=== PATIENT | male | born 1945 | race Caucasian/White ===

== ENCOUNTER 2023-06-02 23:02 | Emergency (ER) | payer MEDICARE, BC ==
[~2023-06-02] VITALS: Ht 175.3 cm; Wt 70.8 kg
[2023-06-03 00:01] LABS: BASOPHILS % (AUTO) 0.5 % (0.0-2.0); EOSINOPHILS # (AUTO) 0.1 K/uL (0.0-0.7); EOSINOPHILS % (AUTO) 1.5 % (0.0-6.0); HEMATOCRIT 31 % (39-51); HEMOGLOBIN 10.5 g/dL (13.5-17.5); LYMPHOCYTES # (AUTO) 2.3 K/uL (0.8-4.8); LYMPHOCYTES % (AUTO) 26.4 % (20.0-44.0); MEAN CORPUSCULAR HEMOGLOBIN 32 PG (26.0-33.0); MEAN CORPUSCULAR HGB CONC 34 g/dl (31.0-36.0); MEAN CORPUSCULAR VOLUME 94 fL (80-96); MONOCYTES # (AUTO) 0.7 K/uL (0.1-1.30); MONOCYTES % (AUTO) 8.4 % (2.0-12.0); NEUTROPHILS # (AUTO) 5.5 K/uL (1.8-8.9); NEUTROPHILS % (AUTO) 63.2 % (43.0-81.0); PLATELET COUNT (AUTO) 151 K/uL (150-450); RED BLOOD CELL COUNT(AUTO) 3.25 MIL/uL (4.5-6.0); RED CELL DISTRIBUTION WIDTH 14.5 % (11.5-15.0); WHITE BLOOD COUNT (AUTO) 8.6 K/uL (4.3-11.0)
[2023-06-03 00:10] LABS: POTASSIUM 2.7 mmol/L (3.5-5.1)
[2023-06-03] MEDS ORDERED: POTASSIUM CHLORIDE 20 MEQ POWDER PACKET ONE (00:28)
[2023-06-03] MEDS: POTASSIUM CHLORIDE 20 MEQ POWDER PACKET PO ONE (00:39)
[2023-06-03 00:51] VITALS: BP 125/68; TEMP 208.4; O2SAT 99
== END 2023-06-03 00:52 | disposition home or self-care (01) ==
LOC: ER 23:04
DX: E87.6 Hypokalemia (principal); Z91.010 Allergy to peanuts
CPT/HCPCS: 36415; 80048-TC; 85025-TC

== ENCOUNTER 2023-08-31 19:38 | Emergency (ER) | payer MEDICARE, BC ==
[~2023-08-31] VITALS: Ht 175.3 cm; Wt 70.3 kg
[2023-08-31 22:00] VITALS: BP 132/80; TEMP 98.1; O2SAT 99
== END 2023-08-31 22:02 | disposition home or self-care (01) ==
LOC: ER 19:40
DX: S00.03XA Contusion of scalp, initial encounter (principal); R56.9 Unspecified convulsions; Z91.010 Allergy to peanuts; W18.39XA Other fall on same level, initial encounter; Y93.89 Activity, other specified; Y92.89 Other specified places as the place of occurrence of the external cause; Y99.8 Other external cause status
CPT/HCPCS: 70450-TC; 72125-TC

== ENCOUNTER 2024-04-18 13:23 | Inpatient (IN) | payer MEDICARE, BC ==
[~2024-04-18] VITALS: Ht 175.3 cm; Wt 74.8 kg
[2024-04-18] VITALS (8 sets, daily range): BP systolic 90–136; BP diastolic 46–82; TEMP 97.8; O2SAT 95–98
[2024-04-18 13:46] LABS: BASOPHILS % (AUTO) 0.1 % (0.0-2.0); HEMATOCRIT 34 % (39-51); HEMOGLOBIN 11.7 g/dL (13.5-17.5); LYMPHOCYTES # (AUTO) 3.1 K/uL (0.8-4.8); LYMPHOCYTES % (AUTO) 26.8 % (20.0-44.0); MEAN CORPUSCULAR HEMOGLOBIN 32 PG (26.0-33.0); MEAN CORPUSCULAR HGB CONC 34 g/dl (31.0-36.0); MEAN CORPUSCULAR VOLUME 94 fL (80-96); MONOCYTES # (AUTO) 0.4 K/uL (0.1-1.30); MONOCYTES % (AUTO) 3.4 % (2.0-12.0); NEUTROPHILS # (AUTO) 8.1 K/uL (1.8-8.9); NEUTROPHILS % (AUTO) 69.7 % (43.0-81.0); PLATELET COUNT (AUTO) 210 K/uL (150-450); RED BLOOD CELL COUNT(AUTO) 3.67 MIL/uL (4.5-6.0); RED CELL DISTRIBUTION WIDTH 14.6 % (11.5-15.0); WHITE BLOOD COUNT (AUTO) 11.6 K/uL (4.3-11.0)
[2024-04-18 13:47] LABS: CALCIUM, SERUM 8.6 mg/dL (8.5-10.1); CARBON DIOXIDE 29 mmol/L (21-32); CHLORIDE 111 mmol/L (98-107); CREATININE 1.1 mg/dL (0.6-1.3); GLUCOSE 145 mg/dL (74-106); SODIUM SERUM 148 mmol/L (136-145); UREA NITROGEN, BLOOD 29 mg/dL (7-18)
[2024-04-18 13:52] LABS: POTASSIUM 2.6 mmol/L (3.5-5.1)
[2024-04-18 13:53] LABS: ALANINE AMINOTRANSFERASE 17 U/L (12-78); ALBUMIN 2.4 g/dL (3.4-5.0); ALKALINE PHOSPHATASE 102 U/L (46-116); ASPARTATE AMINOTRANSFERASE 14 U/L (15-37); BILIRUBIN,DIRECT 0.3 mg/dL (0.0-0.2)
[2024-04-18] MEDS: IV NS 0.9% 1,000 ML BAG IV ONE (13:53)
[2024-04-18 13:54] LABS: INR 1.15 (0.91-1.10); PARTIAL THROMBOPLASTIN TIME 24.8 SEC (24.3-34.3); PROTHROMBIN TIME 12.1 SECS (9.2-11.1)
[2024-04-18] MEDS: CEFEPIME 1 GM in IV D5W 50 ML IV ONE (13:54)
[2024-04-18 14:01] LABS: PLATELET ESTIMATE ADEQUATE
[2024-04-18 14:03] LABS: BAND % (MANUAL) 7 % (0.0-5.0); LYMPHOCYTES % (MANUAL) 31 % (16-48); MONOCYTES % (MANUAL) 8 % (0-11.0); NEUTROPHILS % (MANUAL) 54 (42-76)
[2024-04-18 14:05] LABS: LACTIC ACID 2.7 mmol/L (0.4-2.0)
[2024-04-18] MEDS: VANCOMYCIN 1 GM in IV D5W 250 ML IV ONE (14:07)
[2024-04-18 14:19] LABS: ABG BASE EXCESS 1.1 mmol/L (-2.0-3.0); ABG OXYGEN SATURATION 88.1 % (94.0-98.0); ABG PCO2 34.4 mmHg (35.0-48.0); ABG PO2 51.4 mmHg (83.0-108.0); ABG TOTAL HEMOGLOBIN 11.1 G/dL (13.5-17.5); COHb 0.3 % (0.5-1.5); MetHb 0.2 % (0.0-1.5); O2Hb 87.7 % (94.0-97.0); SITE, ABG RIGHT RADIAL
[2024-04-18] MEDS ORDERED: POTASSIUM CL. PREMIX PERIPHER. 50 ML ONE ×3 (14:32→17:34)
[2024-04-18] MEDS ORDERED: ACETAMINOPHEN 650 MG/SUPP.RECT RC ONE (14:32)
[2024-04-18] MEDS: POTASSIUM CL. PREMIX PERIPHER. 50 ML IV SCH (14:48)
[2024-04-18] MEDS: ACETAMINOPHEN 650 MG/SUPP.RECT RC ONE (14:49)
[2024-04-18 14:54] LABS: APPEARANCE,URINE CLEAR (CLEAR); BILIRUBIN,URINE 1+ (NEGATIVE); BLOOD, URINE TRACE-INTA Ery/uL (NEGATIVE); COLOR,URINE YELLOW (YELLOW); KETONES,URINE 1+ mg/dL (NEGATIVE); LEUKOCYTE ESTERASE ,URINE NEGATIVE (NEGATIVE); NITRITE, URINE NEGATIVE (NEGATIVE); PROTEIN,URINE 2+ mg/dl (NEGATIVE); UGLUCOSE TRACE mg/dL (NEGATIVE)
[2024-04-18 14:57] LABS: ADD URINE CULTURE NO; BACTERIA,URINE Few /HPF (None Seen); CALCIUM OXALATE CRYSTALS,UR Few /HPF (None Seen); HYALINE CASTS, URINE Few /LPF (None Seen); SQUAMOUS EPITHELIAL CELL,UR Few /HPF (None Seen); URINE AMORPHOUS URATE Moderate /HPF (None Seen)
[2024-04-18 14:58] LABS: MUCUS,URINE Few /LPF (None Seen)
[2024-04-18] MEDS ORDERED: CHOL200026 PO (15:00)
[2024-04-18] MEDS ORDERED: MULT-594 PO (15:00)
[2024-04-18] MEDS ORDERED: POTA-10 PO (15:00)
[2024-04-18] MEDS ORDERED: LACO100T2 PO (15:00)
[2024-04-18] MEDS ORDERED: DONE5TAB34 PO (15:00)
[2024-04-18] MEDS ORDERED: GEMTESA PO (15:00)
[2024-04-18] MEDS ORDERED: ASPI-1169 PO (15:00)
[2024-04-18] MEDS ORDERED: FLUD0.1T PO (15:00)
[2024-04-18] MEDS ORDERED: ASCO500T10 PO (15:00)
[2024-04-18] MEDS ORDERED: ATOR10TA PO (15:00)
[2024-04-18] MEDS ORDERED: MIDO10TA PO (15:00)
[2024-04-18] MEDS ORDERED: POTASSIUM CL. PREMIX PERIPHER. 100 ML ONE (16:36)
[2024-04-18] MEDS ORDERED: ZOLPIDEM TARTRATE 5 MG TABLET PO PRN (17:00)
[2024-04-18] MEDS ORDERED: MAGNESIUM HYDROXIDE 30 ML UDC PO PRN (17:00)
[2024-04-18] MEDS ORDERED: MAG HYDROX/AL HYDROX/SIMETH 30 ML UDC PO PRN (17:00)
[2024-04-18] MEDS ORDERED: ONDANSETRON HCL/PF 4 MG/2 ML VIAL IVP PRN (17:00)
[2024-04-18] MEDS ORDERED: Z GUARD REMEDY 4 OZ OINT TP PRN (17:00)
[2024-04-18] MEDS: ENOXAPARIN SODIUM 40 MG/0.4 ML DISP.SYRIN SQ SCH (21:01)
[2024-04-18] MEDS: IV D5/0.45 NACL 1,000 ML IV PRN (21:02)
[2024-04-18] MEDS: IV NS 0.9% 250 ML IV PRN (23:45)
[2024-04-19] VITALS (53 sets, daily range): BP systolic 103–139; BP diastolic 58–89; TEMP 97.8–98.7; O2SAT 84–100
[2024-04-19] MEDS: CEFEPIME 2 GM in IV D5W 100 ML IV SCH (00:25)
[2024-04-19] MEDS: VANCOMYCIN 750 MG in IV D5W 250 ML IV SCH (00:55)
[2024-04-19 04:51] LABS: BASOPHILS % (AUTO) 0.1 % (0.0-2.0); HEMATOCRIT 32 % (39-51); HEMOGLOBIN 10.8 g/dL (13.5-17.5); LYMPHOCYTES # (AUTO) 1.3 K/uL (0.8-4.8); LYMPHOCYTES % (AUTO) 20.4 % (20.0-44.0); MEAN CORPUSCULAR HEMOGLOBIN 32 PG (26.0-33.0); MEAN CORPUSCULAR HGB CONC 34 g/dl (31.0-36.0); MEAN CORPUSCULAR VOLUME 94 fL (80-96); MONOCYTES # (AUTO) 0.2 K/uL (0.1-1.30); MONOCYTES % (AUTO) 3.5 % (2.0-12.0); PLATELET COUNT (AUTO) 127 K/uL (150-450); RED BLOOD CELL COUNT(AUTO) 3.38 MIL/uL (4.5-6.0); RED CELL DISTRIBUTION WIDTH 14.6 % (11.5-15.0); WHITE BLOOD COUNT (AUTO) 6.6 K/uL (4.3-11.0)
[2024-04-19 04:58] LABS: CALCIUM, SERUM 7.4 mg/dL (8.5-10.1); CREATININE 0.9 mg/dL (0.6-1.3); MAGNESIUM 1.8 mg/dL (1.8-2.4); PHOSPHORUS 2.2 mg/dL (2.5-4.9)
[2024-04-19 05:06] LABS: THYROID STIMULATING HORMONE 0.87 uIU/mL (0.358-3.74)
[2024-04-19 05:24] LABS: POTASSIUM 2.8 mmol/L (3.5-5.1)
[2024-04-19] MEDS: POTASSIUM CL. PREMIX PERIPHER. 50 ML IV SCH ×2 (06:00→15:48)
[2024-04-19] MEDS: PANTOPRAZOLE 40 MG VIAL IV SCH (08:31)
[2024-04-19 15:21] LABS: CALCIUM, SERUM 7.2 mg/dL (8.5-10.1); CREATININE 0.9 mg/dL (0.6-1.3); POTASSIUM 3.2 mmol/L (3.5-5.1)
[2024-04-19] MEDS: Sodium Phosphate 15 MMOL in IV NS 0.9% 245 ML IV SCH (16:46)
[2024-04-19 21:03] LABS: CREATININE, URINE 143.8 MG/DL (30.0-125.0); URINE TOTAL PROTEIN 102.1 mg/dL (0-11.9)
[2024-04-20] VITALS (22 sets, daily range): BP systolic 110–149; BP diastolic 50–93; TEMP 97.8–98.7; O2SAT 95–100
[2024-04-20 04:34] LABS: BASOPHILS % (AUTO) 0.2 % (0.0-2.0); EOSINOPHILS % (AUTO) 0.8 % (0.0-6.0); HEMATOCRIT 30 % (39-51); HEMOGLOBIN 10.5 g/dL (13.5-17.5); LYMPHOCYTES # (AUTO) 1.1 K/uL (0.8-4.8); LYMPHOCYTES % (AUTO) 17.6 % (20.0-44.0); MEAN CORPUSCULAR HEMOGLOBIN 32 PG (26.0-33.0); MEAN CORPUSCULAR HGB CONC 35 g/dl (31.0-36.0); MEAN CORPUSCULAR VOLUME 93 fL (80-96); MONOCYTES # (AUTO) 0.3 K/uL (0.1-1.30); MONOCYTES % (AUTO) 4.4 % (2.0-12.0); NEUTROPHILS # (AUTO) 4.6 K/uL (1.8-8.9); PLATELET COUNT (AUTO) 138 K/uL (150-450); RED BLOOD CELL COUNT(AUTO) 3.26 MIL/uL (4.5-6.0); RED CELL DISTRIBUTION WIDTH 14.7 % (11.5-15.0)
[2024-04-20 04:56] LABS: ALBUMIN 1.8 g/dL (3.4-5.0); BILIRUBIN,TOTAL 0.6 mg/dL (0.2-1.0); CALCIUM, SERUM 7.9 mg/dL (8.5-10.1); CREATININE 0.9 mg/dL (0.6-1.3); MAGNESIUM 1.6 mg/dL (1.8-2.4); PHOSPHORUS 2.2 mg/dL (2.5-4.9); POTASSIUM 2.9 mmol/L (3.5-5.1); TOTAL PROTEIN, SERUM 5.1 g/dL (6.4-8.2)
[2024-04-20] MEDS: POTASSIUM CL. PREMIX PERIPHER. 50 ML IV SCH (09:18)
[2024-04-20] MEDS: Magnesium 1GM/D5W 100ML PREMIX 100 ML IV SCH (12:06)
[2024-04-20] MEDS: NEUTRA PHOS 1 POWD.PACKET PO ONE (16:13)
[2024-04-20] MEDS: LACOSAMIDE 50 MG TABLET PO SCH (16:14)
[2024-04-20] MEDS: ATORVASTATIN 10 MG TABLET PO SCH (21:40)
[2024-04-21] VITALS: BP 132/80; TEMP 98.2; O2SAT 98
[2024-04-21 04:00] VITALS: BP 125/85; TEMP 97.6; O2SAT 95
[2024-04-21 08:00] VITALS: BP 147/76; TEMP 98.1; O2SAT 93
[2024-04-21 08:22] LABS: BASOPHILS % (AUTO) 0.2 % (0.0-2.0); EOSINOPHILS # (AUTO) 0.1 K/uL (0.0-0.7); EOSINOPHILS % (AUTO) 0.7 % (0.0-6.0); HEMATOCRIT 33 % (39-51); LYMPHOCYTES # (AUTO) 1.6 K/uL (0.8-4.8); LYMPHOCYTES % (AUTO) 19.6 % (20.0-44.0); MEAN CORPUSCULAR HEMOGLOBIN 32 PG (26.0-33.0); MEAN CORPUSCULAR HGB CONC 34 g/dl (31.0-36.0); MEAN CORPUSCULAR VOLUME 94 fL (80-96); MONOCYTES # (AUTO) 0.4 K/uL (0.1-1.30); MONOCYTES % (AUTO) 4.7 % (2.0-12.0); NEUTROPHILS # (AUTO) 6.2 K/uL (1.8-8.9); NEUTROPHILS % (AUTO) 74.8 % (43.0-81.0); PLATELET COUNT (AUTO) 152 K/uL (150-450); RED BLOOD CELL COUNT(AUTO) 3.48 MIL/uL (4.5-6.0); RED CELL DISTRIBUTION WIDTH 14.9 % (11.5-15.0); WHITE BLOOD COUNT (AUTO) 8.3 K/uL (4.3-11.0)
[2024-04-21] MEDS: DONEPEZIL 5 MG TABLET PO SCH (08:44)
[2024-04-21] MEDS: FLUDROCORTISONE 0.1 MG TABLET PO SCH (08:44)
[2024-04-21] MEDS: ASPIRIN 81 MG TAB.CHEW PO SCH (08:44)
[2024-04-21] MEDS: MULTIVITAMINS,THERAGRAN 1 UDTAB TABLET PO SCH (08:44)
[2024-04-21] MEDS: MIDODRINE HCL (5MG) 5 MG TABLET PO SCH (08:44)
[2024-04-21] MEDS: CHOLECALCIFEROL 1,000 UNIT TABLET (VIT D3) PO SCH (08:44)
[2024-04-21] MEDS ORDERED: Medication Not On Formulary EA ([Gemtesa] 75 MG) PO SCH (09:00)
[2024-04-21 10:07] LABS: PTH, INTACT 27 pg/mL (15-65)
[2024-04-21 10:25] LABS: CALCIUM, SERUM 7.4 mg/dL (8.5-10.1); CREATININE 0.6 mg/dL (0.6-1.3); MAGNESIUM 1.9 mg/dL (1.8-2.4); POTASSIUM 3.4 mmol/L (3.5-5.1)
[2024-04-21 12:00] VITALS: BP 125/84; TEMP 97.9; O2SAT 94
[2024-04-21 14:09] LABS: *SPE A/G RATIO 0.8 (0.7-1.7); *SPE ALPHA-1-GLOBULIN 0.3 g/dL (0.0-0.4); *SPE ALPHA-2-GLOBULIN 0.7 g/dL (0.4-1.0); *SPE BETA GLOBULIN 0.7 g/dL (0.7-1.3); *SPE GLOBULIN, TOTAL 2.5 g/dL (2.2-3.9); *SPE M-SPIKE Not Observed g/dL (Not Observed); *SPE PROTEIN TOTAL 4.5 g/dL (6.0-8.5); *SPEGAMMA GLOBULIN 0.8 g/dL (0.4-1.8)
[2024-04-21 16:00] VITALS: BP 140/82; TEMP 97.7; O2SAT 95
[2024-04-21] MEDS: NEUTRA PHOS 1 POWD.PACKET PO ONE (17:36)
[2024-04-21 20:00] VITALS: BP 135/87; TEMP 98.2; O2SAT 96
[2024-04-22] VITALS (7 sets, daily range): BP systolic 123–168; BP diastolic 73–90; TEMP 97.7–98.6; O2SAT 93–96
[2024-04-22 07:25] LABS: BASOPHILS % (AUTO) 0.2 % (0.0-2.0); EOSINOPHILS # (AUTO) 0.1 K/uL (0.0-0.7); EOSINOPHILS % (AUTO) 1.1 % (0.0-6.0); HEMATOCRIT 34 % (39-51); HEMOGLOBIN 11.6 g/dL (13.5-17.5); LYMPHOCYTES # (AUTO) 1.3 K/uL (0.8-4.8); LYMPHOCYTES % (AUTO) 18.7 % (20.0-44.0); MEAN CORPUSCULAR HEMOGLOBIN 32 PG (26.0-33.0); MEAN CORPUSCULAR HGB CONC 34 g/dl (31.0-36.0); MEAN CORPUSCULAR VOLUME 94 fL (80-96); MONOCYTES # (AUTO) 0.4 K/uL (0.1-1.30); MONOCYTES % (AUTO) 5.6 % (2.0-12.0); NEUTROPHILS # (AUTO) 5.2 K/uL (1.8-8.9); NEUTROPHILS % (AUTO) 74.4 % (43.0-81.0); PLATELET COUNT (AUTO) 150 K/uL (150-450); RED BLOOD CELL COUNT(AUTO) 3.62 MIL/uL (4.5-6.0); RED CELL DISTRIBUTION WIDTH 14.8 % (11.5-15.0)
[2024-04-22 07:38] LABS: CREATININE 0.6 mg/dL (0.6-1.3); MAGNESIUM 1.9 mg/dL (1.8-2.4); PHOSPHORUS 3.1 mg/dL (2.5-4.9); POTASSIUM 2.9 mmol/L (3.5-5.1)
[2024-04-22] MEDS: PANTOPRAZOLE 40 MG/PACK PACK PO SCH (10:38)
[2024-04-22] MEDS: POTASSIUM CHLORIDE 20 MEQ POWDER PACKET PO ONE (10:40)
[2024-04-22] MEDS: ACETAMINOPHEN 325 MG TABLET PO PRN (15:39)
[2024-04-23] VITALS (8 sets, daily range): BP systolic 105–154; BP diastolic 65–82; TEMP 97.3–98.4; O2SAT 92–95
[2024-04-23 07:35] LABS: BASOPHILS % (AUTO) 0.2 % (0.0-2.0); EOSINOPHILS # (AUTO) 0.1 K/uL (0.0-0.7); EOSINOPHILS % (AUTO) 1.2 % (0.0-6.0); HEMATOCRIT 33 % (39-51); HEMOGLOBIN 11.2 g/dL (13.5-17.5); LYMPHOCYTES % (AUTO) 12.1 % (20.0-44.0); MEAN CORPUSCULAR HEMOGLOBIN 32 PG (26.0-33.0); MEAN CORPUSCULAR HGB CONC 35 g/dl (31.0-36.0); MEAN CORPUSCULAR VOLUME 92 fL (80-96); MONOCYTES # (AUTO) 0.4 K/uL (0.1-1.30); MONOCYTES % (AUTO) 4.6 % (2.0-12.0); NEUTROPHILS # (AUTO) 6.5 K/uL (1.8-8.9); NEUTROPHILS % (AUTO) 81.9 % (43.0-81.0); PLATELET COUNT (AUTO) 178 K/uL (150-450); RED BLOOD CELL COUNT(AUTO) 3.54 MIL/uL (4.5-6.0); RED CELL DISTRIBUTION WIDTH 14.4 % (11.5-15.0)
[2024-04-23 07:50] LABS: CALCIUM, SERUM 8.2 mg/dL (8.5-10.1); CREATININE 0.7 mg/dL (0.6-1.3); MAGNESIUM 1.9 mg/dL (1.8-2.4); PHOSPHORUS 2.5 mg/dL (2.5-4.9); POTASSIUM 3.3 mmol/L (3.5-5.1)
[2024-04-23] MEDS: POTASSIUM CHLORIDE 20 MEQ POWDER PACKET PO SCH (11:06)
[2024-04-24] VITALS: BP 131/69; TEMP 98; O2SAT 100
[2024-04-24 04:00] VITALS: BP 136/60; TEMP 98; O2SAT 100
[2024-04-24 07:21] LABS: BASOPHILS % (AUTO) 0.4 % (0.0-2.0); EOSINOPHILS # (AUTO) 0.1 K/uL (0.0-0.7); EOSINOPHILS % (AUTO) 0.8 % (0.0-6.0); HEMATOCRIT 38 % (39-51); LYMPHOCYTES # (AUTO) 1.5 K/uL (0.8-4.8); LYMPHOCYTES % (AUTO) 18.2 % (20.0-44.0); MEAN CORPUSCULAR HEMOGLOBIN 32 PG (26.0-33.0); MEAN CORPUSCULAR HGB CONC 35 g/dl (31.0-36.0); MEAN CORPUSCULAR VOLUME 93 fL (80-96); MONOCYTES # (AUTO) 0.6 K/uL (0.1-1.30); NEUTROPHILS # (AUTO) 6.1 K/uL (1.8-8.9); NEUTROPHILS % (AUTO) 73.6 % (43.0-81.0); PLATELET COUNT (AUTO) 199 K/uL (150-450); RED BLOOD CELL COUNT(AUTO) 4.06 MIL/uL (4.5-6.0); RED CELL DISTRIBUTION WIDTH 14.3 % (11.5-15.0); WHITE BLOOD COUNT (AUTO) 8.2 K/uL (4.3-11.0)
[2024-04-24 08:00] VITALS: BP 152/74; TEMP 98; O2SAT 97
[2024-04-24 08:23] LABS: ALBUMIN 1.8 g/dL (3.4-5.0); BILIRUBIN,TOTAL 0.5 mg/dL (0.2-1.0); CALCIUM, SERUM 8.3 mg/dL (8.5-10.1); CREATININE 0.7 mg/dL (0.6-1.3); PHOSPHORUS 2.9 mg/dL (2.5-4.9); POTASSIUM 3.3 mmol/L (3.5-5.1); TOTAL PROTEIN, SERUM 5.7 g/dL (6.4-8.2)
[2024-04-24] MEDS: POTASSIUM CHLORIDE 20 MEQ POWDER PACKET PO ONE (11:52)
[2024-04-24 12:00] VITALS: BP 152/74; TEMP 98; O2SAT 97
== END 2024-04-24 17:24 | DRG 871 ==
LOC: ER 13:25 → ICU 19:16 → TELE1 04-20 20:43 → TELE-TD 04-20 21:19 → TELE1 04-21 10:55 → MEDSG1 04-24 09:39
PROVIDERS: ADMIT Student in an Organized Health Care Education/Training Program
DX: A41.9 Sepsis, unspecified organism (principal); G92.8 Other toxic encephalopathy; J69.0 Pneumonitis due to inhalation of food and vomit; J96.01 Acute respiratory failure with hypoxia; E87.0 Hyperosmolality and hypernatremia; N17.9 Acute kidney failure, unspecified; E44.0 Moderate protein-calorie malnutrition; G40.909 Epilepsy, unspecified, not intractable, without status epilepticus; Z66 Do not resuscitate; Z20.822 Contact with and (suspected) exposure to COVID-19; I10 Essential (primary) hypertension; F02.80 Dementia in other diseases classified elsewhere, unspecified severity, without behavioral disturbance, psychotic disturbance, mood disturbance, and anxiety; G20.A1 Parkinson's disease without dyskinesia, without mention of fluctuations; M89.8X9 Other specified disorders of bone, unspecified site; Z91.010 Allergy to peanuts; Z79.82 Long term (current) use of aspirin; Z79.899 Other long term (current) drug therapy; E87.6 Hypokalemia; E78.5 Hyperlipidemia, unspecified; E86.0 Dehydration; Y95 Nosocomial condition; E83.39 Other disorders of phosphorus metabolism; D69.6 Thrombocytopenia, unspecified; D64.9 Anemia, unspecified; G13.8 Systemic atrophy primarily affecting central nervous system in other diseases classified elsewhere; F09 Unspecified mental disorder due to known physiological condition; E86.9 Volume depletion, unspecified; E88.9 Metabolic disorder, unspecified
CPT/HCPCS: 36415; 71045-TC; 80048-TC; 80053-TC; 80076-TC; 80202-TC; 81001; 82550-TC; 82570-TC; 82803-TC; 83605-TC; 83735-TC; 83970; 84100-TC; 84155; 84165; 84300-TC; 84443-TC; 84484-TC; 85025-TC; 85730-TC; 87040-TC; 87081-TC; 87086-TC; 92526; 92611-TC; 93970-TC; 94799-TC; 99082-TC; A4223; A9563; G0378; J0692; J1650; J2470; J3370; J3371; J3475; J3480; J3490; J7030; J7050; J7060